=== PATIENT | female | born 1985 | race American Indian/Alaskan Native ===

== ENCOUNTER 2021-11-08 12:22 | Outpatient (CLI) | payer MEDICAID ==
[2021-11-08 13:06] VITALS: BP 127/68
[2021-11-08] MEDS ORDERED: LACTATED RINGERS 500 ML IV ONE (13:44)
[2021-11-08 14:07] LABS: Bacteria,Urine 1+ /HPF (Negative); Bilirubin,Urine NEG (Negative); Blood,Urine NEG (Negative); Color,Urine Yellow (Yellow); Mucus,Urine 1+ /HPF; Protein,Urine <15 mg/dL mg/dL (Negative); Urobilinogen,Urine < 2.0 mg/dL (<2.0)
--- NOTE | 2021-11-09 00:49 | Vascular Lab Report ---
DUPLEX DOPPLER LOWER EXTREMITY VEINS, RIGHT INDICATION / CLINICAL INFORMATION: R/O DVT TO RIGHT LEG. TECHNIQUE: Duplex doppler imaging was performed through the veins of the right lower extremity using venous compression and other maneuvers. COMPARISON: None available. FINDINGS: RIGHT COMMON FEMORAL VEIN: Negative. RIGHT FEMORAL VEIN: Negative. RIGHT POPLITEAL VEIN: Negative. RIGHT CALF VEINS: Negative. ADDITIONAL FINDINGS: None. IMPRESSION: 1. No sonographic evidence for DVT in the right lower extremity. Signer Name: Derek Martinez II, MD Signed: 11/09/2021 12:45 AM Workstation Name: [id number]
== END 2021-11-08 17:30 | disposition home or self-care (01) ==
LOC: TRG 12:22 → LD 12:24 → TRG 17:30
PROVIDERS: ATTEND Obstetrics & Gynecology
DX: O09.892 Supervision of other high risk pregnancies, second trimester (principal); M79.661 Pain in right lower leg; Z3A.21 21 weeks gestation of pregnancy
CPT/HCPCS: 59025; 81001; 87086